=== PATIENT | male | born 1940 | race Caucasian/White ===

== ENCOUNTER 2021-02-13 07:52 | Inpatient (IN) | payer MEDICARE, OTHER, SELFPAY ==
[2021-02-13] VITALS (8 sets, daily range): BP systolic 105–185; BP diastolic 64–100; PULSE 55–87; RESP 16–21; TEMP 36.6–38.6; O2SAT 95–98; BMI 31.7; BMI 30.7
--- NOTE | 2021-02-13 08:06 | CT_ITS ---
STUDY: CT BRAIN WITHOUT CONTRAST REASON FOR EXAM: Male, 80 years old. Fall RADIATION DOSAGE (If Supplied By Facility): CTDIvol = ( 44.99 ) mGy, DLP = ( 812.98 ) mGycm TECHNIQUE: Transaxial CT imaging of the brain was performed without administration of intravenous contrast material. Individualized dose optimization techniques were used for this CT. COMPARISON: No relevant priors. FINDINGS: Normal soft tissue structures. Normal calvarium. There is mild cerebral atrophy with widening of the extra-axial spaces and ventricular dilatation. There are areas of decreased attenuation within the white matter tracts of the supratentorial brain, consistent with microvascular disease changes. Normal basal ganglia and thalami. Normal brainstem. Normal cerebellum. There is no intracranial hemorrhage. There are no findings of an acute ischemic infarction. Atherosclerotic calcification of the vertebral arteries and cavernous portions of the internal carotid arteries bilaterally. Minimal mucosal thickening at the bases of both maxillary sinuses. Partial opacification of the ethmoid sinuses bilaterally. CT/Brain/Head without Contrast IMPRESSION: Chronic involutional changes of the brain. Sinusitis. Electronically Signed: Roman Camp MD at 9:00 EDT , Service support ,
--- NOTE | 2021-02-13 08:06 | RAD_ITS ---
STUDY: X-RAY CHEST REASON FOR EXAM: Male, 80 years old. Fever, cough TECHNIQUE: Single AP portable view of the chest. COMPARISON: None. FINDINGS: EKG electrodes are seen. Focal right basilar infiltrate. There is no demonstrated pleural abnormality. Normal size heart. Normal mediastinum and cindy. Normal visualized pulmonary arteries. There is atherosclerotic tortuosity of the aortic arch and descending thoracic aorta. There are diffuse degenerative changes of the visualized thoracic spine. There is degenerative osteoarthritis of the bilateral shoulders. Prior fusion of the lower cervical spine. There is no demonstrated abnormality of the visualized soft tissue structures of the upper abdomen. RAD/Chest 1 View (Portable) IMPRESSION: Focal right basilar infiltrate. Electronically Signed: Roman Camp MD at 9:12 EDT , Service support ,
--- NOTE | 2021-02-13 08:06 | EKG12_ITS ---
Test Reason : Blood Pressure : / mmHG Vent. Rate : 079 BPM Atrial Rate : 079 BPM P-R Int : 158 ms QRS Dur : 088 ms QT Int : 362 ms P-R-T Axes : 042 007 033 degrees QTc Int : 415 ms Sinus rhythm with Premature supraventricular complexes Otherwise normal ECG Confirmed by SORAYA MORENO, LAST ([id number]), non linear editor CHERRY JONES ([id number]) on 02/14/2021 12:34:57 PM Referred By: CHANA Confirmed By:LAST LIRA MD
--- NOTE | 2021-02-13 08:07 | EDS_ITS ---
HPI History of Present Illness Chief Complaint: Dizziness Detail of Chief Complaint: Generalized weakness since yesterday Informant: patient Narrative Narrative: Patient presents to the emergency department via EMS. Patient per 's been a little unsteady on his feet since yesterday. He fell yesterday when you try to sit in a chair and did bump the back of his head but no loss of consciousness. He denies any neck pain. Patient's had cough for a couple of days as well as congestion. Noted to have a fever on arrival to the emergency department. He denies vomiting or diarrhea. Patient denies urinary symptoms although his states that he was incontinent of urine this morning. Patient denies any rashes. Patient has had his Covid vaccine. states that this morning he was too weak to stand or get dressed. Prior similar symptoms: No PFSH PFSH Medical History (Updated 02/13/21 @ 09:[address] Sun Biggs DO) Hernia HTN (hypertension) Home Medications clopidogrel 75 mg PO DAILY 02/13/21 [History Last Taken Unknown] isosorbide mononitrate 30 mg PO DAILY 02/13/21 [History Last Taken Unknown] lisinopril 5 mg PO DAILY 02/13/21 [History Last Taken Unknown] metoprolol succinate 12.5 mg PO DAILY 02/13/21 [History Last Taken Unknown] pravastatin 40 mg PO/SL DAILY 02/13/21 [History Last Taken Unknown] Allergy/AdvReac Type Severity Reaction Status Date / Time codeine Allergy Upset Verified 02/13/21 07:58 Stomach Surgical History (Updated 02/13/21 @ 08:04 by Ekaterina Ross) History of cardiac cath History of heart artery stent Previous back surgery Social History Smoking Status: Never smoker ROS ROS ED ROS Narrative Generalized weakness Constitutional Constitutional ED: Reports systems reviewed and no addt'l complaints, except as documented and fever(s); Denies body ache(s), change in weight or chills Eyes Eyes: Denies acute decrease in peripheral vision, change in vision, double vision or loss of vision ENT ENT ED: Reports none; Denies ear pain, lip swelling, loss taste/smell, neck pain, otalgia or sore throat Cardiovascular Cardiovascular: Reports none; Denies abdominal pain, chest pain with activity, leg edema, lightheadedness, palpitations, rapid heart rate or syncope Respiratory/Chest Respiratory/Chest: Reports none and cough; Denies change in mental status, dry cough, dyspnea, hemoptysis, shortness of breath at rest or shortness of breath with exertion Gastrointestinal Gastrointestinal: Reports none; Denies abdominal pain, change in stool character, diarrhea, hematemesis, hematochezia, melena, rectal bleeding or vomiting Genitourinary Genitourinary ED: Reports none; Denies abdominal discomfort, anuria, dysuria, genital pain or polyuria Musculoskeletal Musculoskeletal: Reports none; Denies arthralgias, back pain, difficulty walking, extremity pain, muscle weakness or myalgias Integumentary Reports none; Denies abscess or rash Neurologic Neurologic: Reports none and weakness; Denies abnormal gait, confusion, focal weakness, frequent falls, headache(s), loss of vision, numbness, paresthesias, radicular pain or vertigo Psychiatric Psychiatric: Reports systems reviewed and no addt'l complaints, except as documented and none; Denies behavioral changes, confusion, difficulty concentrating, hallucinations, suicidal ideation, tactile hallucinations or visual hallucinations Endocrine Endocrinology: Denies none, cold intolerance, excessive sweating, fatigue or heat intolerance Hematologic/Lymphatic Hematologic/Lymphatic: Reports none; Denies anemia, easy bleeding or easy bruising Allergic/Immunologic Allergic/Immunologic ED: Denies as per HPI, none, lip swelling, mouth swelling, throat swelling, tongue swelling or hives EXAM Physical Exam Const Vital Signs: 02/13/21 07:53 02/13/21 08:02 02/13/21 08:05 Temperature 101.4 F H 101.4 F H Temperature Source Oral Oral Pulse Rate 87 87 Respiratory Rate 21 H 21 H Respiratory Effort Normal Non-Labored Respiratory Pattern Normal Blood Pressure 169/100 H 169/100 H Blood Pressure Mean 123 123 Pulse Ox 96 96 Oxygen Delivery Method Room Air Room Air 02/13/21 09:10 02/13/21 09:55 Temperature 101.5 F H 100.8 F H Temperature Source Temporal Oral Pulse Rate 68 Respiratory Rate 21 H Respiratory Effort Respiratory Pattern Blood Pressure 148/90 H Blood Pressure Mean 109 Pulse Ox 95 Oxygen Delivery Method Room Air Positive well nourished and well developed General Appearance ED: well developed and NAD HEENT Reports TM's clear and moist mucous membranes normocephalic and atraumatic; Negative for trauma or tenderness Tympanic Membrane ED: Yes TM's clear Eyes PERRL and EOMs intact bilaterally General Eye ED: Negative for pale conjunctiva or scleral icterus Neck no lymphadenopathy, supple and no JVD General: Negative for tenderness Chest Wall inspection of chest normal and palpation of chest normal Chest: Negative for tenderness Resp normal respiratory effort and clear to auscultation bilaterally Effort and Inspection: Negative for respiratory distress or pain with movement Auscultation: Negative for rhonchi, wheezes or diminished lung sounds Cardio regular rate, regular rhythm, S1 normal heart sound, S2 normal heart sound and no murmurs Peripheral Pulses: pulses 2+ throughout GI normal to inspection, nondistended, normoactive bowel sounds, soft to palpation, non-tender, non-distended and no masses Back/Spine no CVA tenderness and no thoracic nor lumbar tenderness Extremity normal to inspection General Extremety ED: Negative for edema General Extremity: Negative for edema Neuro oriented x3, CN's II-XII intact bilaterally, no sensory deficits noted and gait normal Sensorium / Orientation: awake, alert, oriented to person, oriented to place and oriented to time Motor Exam: strength 5/5 throughout and strength abnormal Psych mental status grossly normal Skin no rashes or lesions noted and no wounds MDM MDM MDM Narrative Medical decision making narrative: Results discussed with patient. Patient is Covid positive. I suspect this is likely the etiology for his fever and generalized weakness. Case will be discussed with hospitalist to evaluate patient for admission. Lab Data Attestation: I reviewed the patient's lab results. Labs: Laboratory Results - last 24 hr 02/13/21 02/13/21 02/13/21 07:36 07:36 08:00 WBC 9.4 RBC 4.54 L Hgb 13.8 Hct 42.0 MCV 92.5 MCH 30.4 MCHC 32.9 RDW Std Deviation 47.4 H RDW Coeff of [place] 13.9 Plt Count 167 MPV 10.9 Immature Gran % (Auto) 0.300 Neut % (Auto) 62.9 Lymph % (Auto) 25.7 [place] % (Auto) 10.4 H Eos % (Auto) 0.2 Baso % (Auto) 0.5 Absolute Neuts (auto) 5.9 Absolute Lymphs (auto) 2.40 Nucleated RBC % 0 Sodium 144 Potassium 4.0 Chloride 113 H Carbon Dioxide 24.0 Anion Gap 7 BUN 21 H Creatinine 1.24 Estim Creat Clear Calc 43.59 Est GFR (MDRD) Af Amer 72 Est GFR (MDRD) Non-Af 60 BUN/Creatinine Ratio 16.9 Glucose 131 H Lactic Acid 1.1 Calcium 8.4 L Troponin I High Sens 18 Urine Color Urine Clarity Urine pH Ur Specific [place] Urine Protein Urine Glucose (UA) Urine Ketones Urine Occult Blood Urine Nitrite Urine Bilirubin Urine Urobilinogen Ur Leukocyte Esterase Urine RBC Urine WBC Ur Squamous Epith Cells Urine Bacteria Urine Mucus 02/13/21 09:09 WBC RBC Hgb Hct MCV MCH MCHC RDW Std Deviation RDW Coeff of [place] Plt Count MPV Immature Gran % (Auto) Neut % (Auto) Lymph % (Auto) [place] % (Auto) Eos % (Auto) Baso % (Auto) Absolute Neuts (auto) Absolute Lymphs (auto) Nucleated RBC % Sodium Potassium Chloride Carbon Dioxide Anion Gap BUN Creatinine Estim Creat Clear Calc Est GFR (MDRD) Af Amer Est GFR (MDRD) Non-Af BUN/Creatinine Ratio Glucose Lactic Acid Calcium Troponin I High Sens Urine Color Yellow Urine Clarity Clear Urine pH 5.0 Ur Specific [place] 1.020 Urine Protein Negative Urine Glucose (UA) Normal Urine Ketones Negative Urine Occult Blood Negative Urine Nitrite Negative Urine Bilirubin Negative Urine Urobilinogen Normal Ur Leukocyte Esterase Negative Urine RBC 0 SEEN Urine WBC 0 SEEN Ur Squamous Epith Cells 0 SEEN Urine Bacteria 0 SEEN Urine Mucus 0 SEEN Radiography Chest X-Ray - ED: 1 View Diagnostic Testing: Radiology Impression Brain CT 02/13/21 08:06 IMPRESSION: Chronic involutional changes of the brain. Sinusitis. Electronically Signed: Roman Camp MD at 9:00 EDT , Service support , Chest X-Ray 02/13/21 08:06 IMPRESSION: Focal right basilar infiltrate. Electronically Signed: Roman Camp MD at 9:12 EDT , Service support , 1 view chest x-ray obtained interpreted by myself as increased markings the right lower lobe suspicious for infiltrate.. Official report from radiology pending. EKG Initial EKG: Attestation: I personally reviewed and interpreted this EKG as follows: Comments: Sinus rhythm with a ventricular rate of 79 bpm with occasional PACs Discharge Plan Dx/Rx/DC Orders Clinical Impression: COVID-19, Weakness, Fall, CHI (closed head injury) Disposition Disposition: Acute Care Hospital [facility]
[2021-02-13] MEDS: 0.9% Normal Saline 1,000 ML 150 ML IV (08:20)
[2021-02-13 08:25] LABS: Absolute Neutrophil Count 5.9 X10^3/uL (2.0-7.7); Basophil# 0.05 X10^3/uL; Basophil% 0.5 % (0-1); Eosinophil# 0.02 X10^3/uL; Eosinophils% 0.2 % (0-5); Hemoglobin 13.8 g/dL (13.0-16.5); Lymphocyte % 25.7 % (19-41); Mean Corp Hgb Conc 32.9 g/dL (32-36); Mean Corpuscular Hgb 30.4 pg (27.0-32.0); Mean Corpuscular Volume 92.5 fL (80-94); Mean Platelet Vol. 10.9 fl (6.2-12.0); Monocyte# 0.97 X10^3/uL; Monocyte% 10.4 % (0-10); NRBC Flagged by Analyzer 0 % (0-5); Neutrophil # 5.88 X10^3/uL (2.7-7.7); Neutrophil % 62.9 % (47-70); Platelet Count 167 K/mm3 (150-450); RBC Distribution Width CV 13.9 % (11.6-14.6); RBC Distribution Width SD 47.4 fl (35.1-43.9); Red Blood Count 4.54 M/mm3 (4.6-6.2); White Blood Count 9.4 K/mm3 (4.4-11.0)
[2021-02-13 08:35] LABS: Lactic Acid 1.1 mmol/L (0.4-1.9)
[2021-02-13 08:37] LABS: Anion Gap 7 (5-15); BUN 21 mg/dL (7-18); BUN/Creat Ratio 16.9 RATIO (10-20); Calcium,Total 8.4 mg/dL (8.5-10.1); Chloride 113 mmol/L (98-107); Creatinine, Serum 1.24 mg/dL (0.70-1.30); EST Glomerular Filtration Rate 60 mL/min (>60); Est Glom Filt Rate - Afr Amer 72 mL/min (>60); Estimated Creatinine Clearance 43.59 ml/min; Glucose 131 mg/dL (74-106); Sodium Level 144 mmol/L (136-145); Troponin-I HS 18 pg/mL (3.0-78.0)
[2021-02-13] MEDS: Acetaminophen 325 MG Tablet 650 MG PO (09:10)
[2021-02-13 09:15] LABS: Bacteria 0 SEEN /hpf (None Seen); Mucous, Urine 0 SEEN /hpf (<or=2+); Red Blood Cells-Urine 0 SEEN /hpf (0-5); Squamous Epithelial Cells - UA 0 SEEN /hpf (0-5); White Blood Cells 0 SEEN /hpf (0-5)
[2021-02-13 09:25] LABS: Color, Urine Yellow (Yellow); Glucose, Dipstick Normal (Normal); Ketone-Dipstick Negative (Negative); Leukocyte Esterase-Dipstick Negative /ul (Negative); Nitrite-Dipstick Negative (Negative); Occult Blood-Urine Negative /ul (Negative); Protein-Dipstick Negative (Negative); Urine Bilirubin Dipstick Negative (Negative); Urine Clarity Clear (Clear); Urine Urobilinogen Normal (Normal)
[2021-02-13] MEDS: Enoxaparin 40 MG/0.4 ML Syringe SC (14:06)
--- NOTE | 2021-02-13 16:28 | PCM.HP.STD ---
HPI - General General Date of Admission: 02/13/21 HPI Narrative SANCHO LEBLANC, is a 80 M who presents to the ED with weakness since about yesterday. He also did have a fall yesterday when he tried to sit in a chair and bumped the back of his head but did not have any loss of consciousness. CT scan in the ER was negative for bleed. He has had a cough and congestion for the last couple of days as well and was febrile on admission. He did have the Covid vaccine however rapid antigen test in the ER demonstrates a Covid positive status with the right focal pneumonia on chest x-ray. No leukocytosis, and no hypoxia. He is a poor historian and I did talk to the on the phone who states that he fell a couple of days ago onto his knees and then yesterday he fell down when he tried to sit and then this morning he had difficulty standing up. She also states that he has had difficulty swallowing liquids and has episodes where the water comes out of his mouth. [facility] Medical History Hernia HTN (hypertension) Home Medications clopidogrel 75 mg PO DAILY 02/13/21 [History Last Taken Unknown] isosorbide mononitrate 30 mg PO DAILY 02/13/21 [History Last Taken Unknown] lisinopril 5 mg PO DAILY 02/13/21 [History Last Taken Unknown] metoprolol succinate 12.5 mg PO DAILY 02/13/21 [History Last Taken Unknown] pravastatin 40 mg PO/SL DAILY 02/13/21 [History Last Taken Unknown] Allergy/AdvReac Type Severity Reaction Status Date / Time codeine Allergy Upset Verified 02/13/21 07:58 Stomach Family History (Updated 02/13/21 @ 16:[address] Michael Orantes MD) Other CVA (cerebral vascular accident) Surgical History (Updated 02/13/21 @ 08:04 by Ekaterina Ross) History of cardiac cath History of heart artery stent Previous back surgery Social History Smoking Status: Never smoker ROS Constitutional Constitutional: Reports fever(s) and weakness; Denies chills, fatigue or malaise Eyes Eyes: Denies blurry vision ENT HEENT: Denies headache(s) or nasal discharge Cardiovascular Cardiovascular: Denies chest pain, dyspnea on exertion or syncope Respiratory/Chest Respiratory/Chest: Reports cough; Denies shortness of breath at rest or shortness of breath with exertion Gastrointestinal Gastrointestinal: Denies constipation, diarrhea, nausea or vomiting Genitourinary Genitourinary: Denies dysuria Neurologic Neurologic: Denies focal weakness, numbness or tremor(s) Psychiatric Psychiatric: Denies anxiety or depression Vital Signs Vital Signs Vital Signs: 02/13/21 07:53 02/13/21 08:02 02/13/21 08:05 Temperature 101.4 F H 101.4 F H Temperature Source Oral Oral Pulse Rate 87 87 Respiratory Rate 21 H 21 H Respiratory Effort Normal Non-Labored Respiratory Depth Respiratory Pattern Normal Blood Pressure 169/100 H 169/100 H Blood Pressure Mean 123 123 Blood Pressure Source Blood Pressure Position Blood Pressure Location Pulse Ox 96 96 Oxygen Delivery Method Room Air Room Air 02/13/21 09:10 02/13/21 09:55 02/13/21 11:00 Temperature 101.5 F H 100.8 F H 98.1 F Temperature Source Temporal Oral Oral Pulse Rate 68 85 Respiratory Rate 21 H 20 H Respiratory Effort Normal Respiratory Depth Normal Respiratory Pattern Normal Blood Pressure 148/90 H 122/64 H Blood Pressure Mean 109 83 Blood Pressure Source Monitor Blood Pressure Position Semi-Fowlers Blood Pressure Location Right Arm Pulse Ox 95 96 Oxygen Delivery Method Room Air Room Air 02/13/21 13:56 02/13/21 14:04 02/13/21 14:08 Temperature 97.8 F Temperature Source Oral Pulse Rate 55 L 55 L Respiratory Rate 18 Respiratory Effort Normal Respiratory Depth Normal Respiratory Pattern Normal Blood Pressure 105/64 Blood Pressure Mean 77 Blood Pressure Source Monitor Blood Pressure Position Sitting Blood Pressure Location Right Arm Pulse Ox 98 Oxygen Delivery Method Room Air Room Air Weight Weight: 190 lb 7.67 oz Body Mass Index (BMI) 30.7 Physical Exam Const alert and no apparent distress General Appearance: cooperative HEENT normocephalic and moist oral mucous membranes Eyes PERRL, EOMs intact bilaterally and conjunctivae normal Neck supple and no JVD Resp normal respiratory effort, no retractions and no use of accessory muscles Auscultation: crackles right base; Negative for rales, rhonchi or wheezes Cardio regular rate, regular rhythm, S1 normal heart sound, S2 normal heart sound and no murmurs GI soft to palpation, non-tender and non-distended; Negative for hepatosplenomegaly Extremity no clubbing, cyanosis or edema Skin no rashes or lesions noted Neuro no focal motor deficits and no sensory deficits noted Psych Mood & Affect: flat affect Results Lab / Micro Data Result Diagrams: 02/14/21 06:30 02/14/21 06:30 Labs: Laboratory Results - last 24 hr 02/13/21 07:36: WBC 9.4, RBC 4.54 L, Hgb 13.8, Hct 42.0, MCV 92.5, MCH 30.4, MCHC 32.9, RDW Std Deviation 47.4 H, RDW Coeff of [place] 13.9, Plt Count 167, MPV 10.9, Immature Gran % (Auto) 0.300, Neut % (Auto) 62.9, Lymph % (Auto) 25.7, [place] % (Auto) 10.4 H, Eos % (Auto) 0.2, Baso % (Auto) 0.5, Absolute Neuts (auto) 5.9, Absolute Lymphs (auto) 2.40, Nucleated RBC % 0 02/13/21 07:36: Sodium 144, Potassium 4.0, Chloride 113 H, Carbon Dioxide 24.0, Anion Gap 7, BUN 21 H, Creatinine 1.24, Estim Creat Clear Calc 43.59, Est GFR (MDRD) Af Amer 72, Est GFR (MDRD) Non-Af 60, BUN/Creatinine Ratio 16.9, Glucose 131 H, Calcium 8.4 L, Troponin I High Sens 18 02/13/21 08:00: Lactic Acid 1.1 02/13/21 09:09: Urine Color Yellow, Urine Clarity Clear, Urine pH 5.0, Ur Specific [place] 1.020, Urine Protein Negative, Urine Glucose (UA) Normal, Urine Ketones Negative, Urine Occult Blood Negative, Urine Nitrite Negative, Urine Bilirubin Negative, Urine Urobilinogen Normal, Ur Leukocyte Esterase Negative, Urine RBC 0 SEEN, Urine WBC 0 SEEN, Ur Squamous Epith Cells 0 SEEN, Urine Bacteria 0 SEEN, Urine Mucus 0 SEEN Micro: Microbiology 02/13/21 08:12 Nasal Secretion SARS-CoV-2 Antigen (Rapid) - Final SARS-CoV-2 (COVID 19) Radiology Impression Brain CT 02/13/21 08:06 IMPRESSION: Chronic involutional changes of the brain. Sinusitis. Electronically Signed: Roman Camp MD at 9:00 EDT , Service support , Chest X-Ray 02/13/21 08:06 IMPRESSION: Focal right basilar infiltrate. Electronically Signed: Roman Camp MD at 9:12 EDT , Service support , Assessment & Plan Assessment/Plan (1) COVID-19: (2) Weakness: PLAN: 1. Weakness and debility secondary to COVID-19 possible aspiration -Symptoms started a few days ago however he is not hypoxic therefore does not meet criteria for treatment with remdesivir and Decadron -He has vaccinated -We will obtain bedside swallow and possible speech evaluation if necessary -We will continue with PT/OT evaluation for possible placement -If he fails bedside swallow we will need to start him on IV fluids - states that he is been weak for the last several days and has been having issues with swallowing for the last couple of days specifically with water where comes out of his mouth 2. CAD status post stent/HTN/HLD -He does have a history of previous stent, will continue with his Plavix -Blood pressures are stable can continue with his home blood pressure medications -Continue with statin DVT: Lovenox Charges/Coding Visit Charges Inpatient E&M: 72121 Init Hosp L3
--- NOTE | 2021-02-13 16:53 | NURSING ---
aware per lab have enough urine for legonella and strep sent from ER
--- NOTE | 2021-02-13 16:59 | MRI_ITS ---
STUDY: MRI BRAIN WITHOUT CONTRAST REASON FOR EXAM: Male, 80 years old. Confusion, swallowing difficulty and weakness, COVID + TECHNIQUE: Standardized multiplanar fat and water weighted pulse sequences were obtained. COMPARISON: Same-day head CT FINDINGS: There is mild cerebral volume loss with widening of the extra-axial spaces and ventricular dilatation. There are a limited number of small white matter hyperintensities, distributed throughout the deep white matter tracts of the cerebral hemispheres, consistent with mild chronic white matter ischemic changes. There is no evidence for recent intracranial ischemia or other cause of cytotoxic edema on diffusion weighted imaging (DWI). Normal T2* images of the brain without demonstrated susceptibility artifact. There is no demonstrated hemosiderin stain. Normal bilateral basal ganglia. Normal thalami. There is no extra-axial fluid accumulation. Normal flow voids within the major intracranial circulation suggesting patency by spin echo criteria. Normal sella turcica, pituitary gland, infundibular stalk, optic chiasm and hypothalamus. Normal tectal plate and pineal gland. Normal midbrain, phani and medulla. Normal cerebellum. Normal basal cisterns. Normal bilateral temporal bones. Normal bilateral internal auditory canals. No demonstrated orbital abnormality, within the constraints of a routine brain study. Normal visualized paranasal sinuses. Small right mastoid effusion. Normal calvarium and skull base. Normal visualized soft tissue structures. Normal visualized upper cervical spine. MRI/Brain without Contrast IMPRESSION: No acute abnormal finding in the brain. Small right mastoid effusion. Electronically Signed: Tonny Hunter MD at 22:10 EDT Tel , Service support ,
[2021-02-13] MEDS: MELATONIN 3 MG TABLET PO (23:06)
[2021-02-13] MEDS: Pravastatin 40 MG Tablet PO (23:06)
[2021-02-14] VITALS (8 sets, daily range): BP systolic 108–151; BP diastolic 62–97; PULSE 60–84; RESP 17–20; TEMP 36.6–38.1; O2SAT 94–97
[2021-02-14] MEDS: Lisinopril 5 MG Tablet PO ×2 (00:07→09:59)
[2021-02-14] MEDS: Metoprolol(XL)Succ 25 MG Tablet 12.5 MG PO ×2 (00:07→09:57)
[2021-02-14 07:29] LABS: Absolute Lymphocyte Count 2.33 X10^3/uL (0.83-4.51); Basophil# 0.03 X10^3/uL; Basophil% 0.4 % (0-1); Eosinophil# 0.02 X10^3/uL; Eosinophils% 0.2 % (0-5); Hematocrit 39.8 % (40-54); Hemoglobin 12.7 g/dL (13.0-16.5); Lymphocyte # 2.33 X10^3/ul (0.83-4.51); Lymphocyte % 28.6 % (19-41); Mean Corp Hgb Conc 31.9 g/dL (32-36); Mean Corpuscular Hgb 29.8 pg (27.0-32.0); Mean Corpuscular Volume 93.4 fL (80-94); Monocyte# 0.73 X10^3/uL; Monocyte% 8.9 % (0-10); NRBC Flagged by Analyzer 0 % (0-5); Neutrophil # 5.03 X10^3/uL (2.7-7.7); Neutrophil % 61.7 % (47-70); Platelet Count 132 K/mm3 (150-450); RBC Distribution Width SD 47.8 fl (35.1-43.9); Red Blood Count 4.26 M/mm3 (4.6-6.2); White Blood Count 8.2 K/mm3 (4.4-11.0)
[2021-02-14 07:54] LABS: Anion Gap 5 (5-15); BUN 16 mg/dL (7-18); BUN/Creat Ratio 18.1 RATIO (10-20); Calcium,Total 8.3 mg/dL (8.5-10.1); Chloride 112 mmol/L (98-107); Creatinine, Serum 0.88 mg/dL (0.70-1.30); EST Glomerular Filtration Rate 88 mL/min (>60); Est Glom Filt Rate - Afr Amer 107 mL/min (>60); Estimated Creatinine Clearance 61.42 ml/min; Glucose 111 mg/dL (74-106); Sodium Level 143 mmol/L (136-145)
[2021-02-14] MEDS: Isosorbide Mononitrate 30 MG Tablet PO (09:57)
[2021-02-14] MEDS: Enoxaparin 40 MG/0.4 ML Syringe SC (09:58)
[2021-02-14] MEDS: 0.9% Saline Lock 10 ML Syringe IV (09:59)
--- NOTE | 2021-02-14 11:49 | CASEMGMT ---
Social Work Assessment Referral Date: 02/14/2021 Date of Assessment: 02/14/2021 Reason for consult: Discharge planning Informant: SW Personal Status: SW in to speak with pt to complete initial assessment. SW introduced self and role at [facility]. Pt is alert and orientated x3, answers questions appropriately. Living Arrangements: Pt states he lives with his Naida in a first floor condo, with one step to enter and no railings by the steps. DME: Cane, walker, wheelchair, Shower chair PCP: Dong Laughlin Pharmacy: [facility] ALDs: Pt's Naida assists with ADLS, pt mostly independent to get up and walk around at home. Transportation: Pt's Naida dirves Advanced Directives: Pt denied, states his would make decisions for him if needed HHC: Pt states has had HHC in the past, unable to recall name of Agency SNF: None Therapy: Pt states that he was doing outpatient therapy at [facility], states it was a few days blair the last time he went. Pt states he had five sessions left but decided to stop going. Pt states therapy doesn't really do much for me. Substance Abuse Hx: Pt denied Mental Health Hx: Pt denied SW spoke with pt about discharge plans. Pt states that he feels better than he did yesterday. At first pt states he doesn't feel safe going home, SW asked pt if he needs to go to a SNF then for short term rehabilitation and pt denied. Pt then states he feels safe at home, he just has back pain. Pt states that he's had operations before for his back and they worked for about five years. Pt states he needs another surgery. SW asked pt if he has a surgery schedule and pt denied, states the person that did his last surgery is not around here anymore and pt needs to find a new surgeon. SW asked pt if he spoke with his PCP about getting a new back surgeon and pt states he hasn't yet. SW encouraged pt to speak to his PCP about finding a back surgeon, pt states understanding. Pt states at this time preference is to return home. SW asked pt if he felt like he needed HHC or outpatient therapy again and pt denied. SW asked pt if this worker could call his and pt gave this worker permission to call his . Per OT notes from today, pt walked 20ft min assist of 1 contact guard, min assistance for ADLs. ASH placed a call to pt's Naida and introduced self and role at [facility]. Naida confirms she assists pt with ADLs, states pt is able to get around ok when he utilizes a cane and walker. Naida states pt's HHC was through [facility] but it has been a while since pt has had HHC. Naida states pt was getting therapy 2x a week at [facility] for his drop foot. Naida states pt's doctor told pt that he didn't need to go to outpatient therapy anymore. Naida states pt was supposed to get fitted today for a brace for his drop foot but that will be rescheduled. Naida states that they are in the process of moving from [place] to [place] so she will be in and out today moving things from [place] to [place]. ASH asked pt if she felt pt needed any HHC/outpatient therapy and Naida asked this worker well what do you think. ASH informed Naida that OT did recommend additional therapy but at this time pt is refusing any HHC or outpatient therapy. Naida states that sounds like him. ASH informed Naida that SW/RN CM will continue to work with therapy and see if pt would be agreeable to any additional therapy. Naida states understanding, agreeable to pt returning home at discharge. 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
--- NOTE | 2021-02-14 13:38 | PN.HOSP_ITS ---
Subjective Subjective Looks much better today, more energetic. Passes dysphagia screen. MRI was negative for stroke and CT scan was unremarkable. Objective Data Objective Data Vital Signs: Vital Signs Temp Pulse Resp BP Pulse Ox 97.9 F 82 20 H 108/62 94 02/14/21 13:27 02/14/21 13:27 02/14/21 13:27 02/14/21 13:27 02/14/21 13:27 Oxygen Delivery Method Room Air Weight: 190 lb 7.67 oz Body Mass Index (BMI) 30.7 Intake & Output: Intake and Output for Last 24 Hours 02/13/21 02/14/21 02/15/21 03:59 03:59 03:59 Intake Total 550 / 550 Balance 550 / 550 Lab / Micro Data Result Diagrams: 02/14/21 06:30 02/14/21 06:30 Labs: Laboratory Results - last 24 hr 02/14/21 06:30: WBC 8.2, RBC 4.26 L, Hgb 12.7 L, Hct 39.8 L, MCV 93.4, MCH 29.8, MCHC 31.9 L, RDW Std Deviation 47.8 H, RDW Coeff of Triston 14.0, Plt Count 132 L, MPV 11.0, Immature Gran % (Auto) 0.200, Neut % (Auto) 61.7, Lymph % (Auto) 28.6, Giles % (Auto) 8.9, Eos % (Auto) 0.2, Baso % (Auto) 0.4, Absolute Neuts (auto) 5.0, Absolute Lymphs (auto) 2.33, Nucleated RBC % 0 02/14/21 06:30: Sodium 143, Potassium 4.0, Chloride 112 H, Carbon Dioxide 26.0, Anion Gap 5, BUN 16, Creatinine 0.88, Estim Creat Clear Calc 61.42, Est GFR (MDRD) Af Amer 107, Est GFR (MDRD) Non-Af 88, BUN/Creatinine Ratio 18.1, Glucose 111 H, Calcium 8.3 L Micro: Microbiology 02/13/21 09:09 Urine, Clean Catch Urine Culture - Preliminary Culture exhibits no growth. 02/13/21 09:09 Urine, Clean Catch Legionella Antigen - Final 02/13/21 09:09 Urine, Clean Catch Streptococcus pneumoniae Antigen (M - Final 02/13/21 08:12 Nasal Secretion SARS-CoV-2 Antigen (Rapid) - Final SARS-CoV-2 (COVID 19) Radiography Diagnostic Testing: Radiology Impression Brain MRI 02/13/21 16:59 IMPRESSION: No acute abnormal finding in the brain. Small right mastoid effusion. Electronically Signed: Tonny Hunter MD at 22:10 EDT Tel , Service support , Physical Exam Const alert, oriented x3 and no apparent distress General Appearance: cooperative HEENT normocephalic and moist oral mucous membranes Eyes PERRL, EOMs intact bilaterally and conjunctivae normal Neck supple and no JVD Resp normal respiratory effort, no retractions and no use of accessory muscles Auscultation: crackles right base; Negative for rales, rhonchi or wheezes Cardio regular rate, regular rhythm, S1 normal heart sound, S2 normal heart sound and no murmurs GI soft to palpation, non-tender and non-distended; Negative for hepatosplenomegaly Extremity no clubbing, cyanosis or edema Skin no rashes or lesions noted Neuro no focal motor deficits and no sensory deficits noted Psych affect normal Appearance: appropriate Assessment & Plan Assessment/Plan (1) COVID-19: (2) Weakness: PLAN: 1. Weakness and debility secondary to COVID-19 possible aspiration -Symptoms started a few days ago however he is not hypoxic therefore does not meet criteria for treatment with remdesivir and Decadron -He has been vaccinated -Passed bedside swallow -PT/OT evaluation demonstrates need for SNF, will discuss this with him -MRI was negative for stroke -Remains afebrile without a leukocytosis, has not had Tylenol for at least 24 hours 2. CAD status post stent/HTN/HLD -He does have a history of previous stent, will continue with his Plavix -Blood pressures are stable can continue with his home blood pressure medicat ions -Continue with statin DVT: Lovenox Charges/Coding Visit Charges Inpatient E&M: 68686 Subs Hosp L2
--- NOTE | 2021-02-14 15:16 | CASEMGMT ---
RN CM in to pt room to discuss HHC options with patient. Pt states he really does not want HHC therapy but asks this CM to call his . TC to . No answer, left message to call this RN CM back.
[2021-02-14] MEDS: Pravastatin 40 MG Tablet PO (20:33)
[2021-02-15 02:26] VITALS: BP 149/98; PULSE 71; RESP 20; TEMP 36.6; O2SAT 94
[2021-02-15 07:05] LABS: Absolute Lymphocyte Count 1.77 X10^3/uL (0.83-4.51); Absolute Neutrophil Count 4.5 X10^3/uL (2.0-7.7); Basophil# 0.02 X10^3/uL; Basophil% 0.3 % (0-1); Hematocrit 39.4 % (40-54); Hemoglobin 12.7 g/dL (13.0-16.5); Lymphocyte # 1.77 X10^3/ul (0.83-4.51); Lymphocyte % 25.7 % (19-41); Mean Corp Hgb Conc 32.2 g/dL (32-36); Mean Corpuscular Hgb 29.8 pg (27.0-32.0); Mean Corpuscular Volume 92.5 fL (80-94); Monocyte# 0.61 X10^3/uL; Monocyte% 8.9 % (0-10); NRBC Flagged by Analyzer 0 % (0-5); Neutrophil # 4.47 X10^3/uL (2.7-7.7); Platelet Count 127 K/mm3 (150-450); RBC Distribution Width CV 14.1 % (11.6-14.6); RBC Distribution Width SD 48.1 fl (35.1-43.9); Red Blood Count 4.26 M/mm3 (4.6-6.2); White Blood Count 6.9 K/mm3 (4.4-11.0)
[2021-02-15 07:42] LABS: Anion Gap 7 (5-15); BUN 17 mg/dL (7-18); BUN/Creat Ratio 16.7 RATIO (10-20); Calcium,Total 8.4 mg/dL (8.5-10.1); Chloride 111 mmol/L (98-107); Creatinine, Serum 1.02 mg/dL (0.70-1.30); EST Glomerular Filtration Rate 75 mL/min (>60); Est Glom Filt Rate - Afr Amer 90 mL/min (>60); Estimated Creatinine Clearance 52.99 ml/min; Glucose 106 mg/dL (74-106); Potassium 3.7 mmol/L (3.5-5.1); Sodium Level 141 mmol/L (136-145)
[2021-02-15] MEDS: Enoxaparin 40 MG/0.4 ML Syringe SC (09:52)
[2021-02-15] MEDS: Lisinopril 5 MG Tablet PO (09:53)
[2021-02-15 09:54] VITALS: PULSE 78
[2021-02-15] MEDS: Metoprolol(XL)Succ 25 MG Tablet 12.5 MG PO (09:54)
[2021-02-15] MEDS: Isosorbide Mononitrate 30 MG Tablet PO (09:59)
[2021-02-15 10:00] VITALS: BP 109/69; PULSE 78; RESP 18; TEMP 36.8; O2SAT 96
--- NOTE | 2021-02-15 12:49 | PCM.DC ---
Discharge Instructions Diet Discharge Diet: Low fat / Low cholesterol Activity Discharge Activity: Return to Normal Activity Dressing / Incision Call your doctor if you observe: Fever of 101 or Higher, Shortness of breath, Dizziness, Fainting spells, Swelling in the ankles, Chest pain and Increased palpitations (irregular heartbeat) Follow Up Care Test Results: Test results from this visit will be discussed in further detail at your follow-up appointment, if applicable. Discharge Plan Admission Admit Date/Time: 02/13/21 09:45 Attending Provider: Michael Orantes Primary Care Provider: Juliocesar Laughlin Discharge Orders/Prescriptions Prescriptions: Continued isosorbide mononitrate 30 mg Tablet Extended Release 24 Hr 30 mg PO DAILY RF: 0 clopidogrel 75 mg Tablet 75 mg PO DAILY RF: 0 lisinopril 5 mg Tablet 5 mg PO DAILY RF: 0 metoprolol succinate 25 mg Tablet Extended Release 24 Hr 12.5 mg PO DAILY RF: 0 pravastatin 40 mg PO/SL DAILY RF: 0 Referrals / Follow Up: Juliocesar Laughlin MD [Primary Care Provider] - Within 1 Week Disposition Disposition (needs filled in before D/C Order can be placed): Home Health Service
--- NOTE | 2021-02-15 12:51 | PCM.DC.SUM ---
Providers Date of Admission: 02/13/21 Primary Care Physician: Dr. Juliocesar Laughlin MD Reason For Visit: COVID PNEUMONIA Diagnosis Discharge Diagnosis (1) COVID-19: Status: Acute Code(s): U07.1 - COVID-19 (2) Weakness: Status: Acute Code(s): R53.1 - Weakness Medications at Discharge Home Medications clopidogrel 75 mg PO DAILY 02/13/21 isosorbide mononitrate 30 mg PO DAILY 02/13/21 lisinopril 5 mg PO DAILY 02/13/21 metoprolol succinate 12.5 mg PO DAILY 02/13/21 pravastatin 40 mg PO/SL DAILY 02/13/21 albuterol sulfate 2 puff INHALATION Q6H PRN #6.7 g 02/15/21 Hospital Course Operations None Procedures None Summary of Care Provided Minutes Spent on Discharge: 35 Hospital Course: Per HPI: SANCHO LEBLANC, is a 80 M who presents to the ED with weakness since about yesterday. He also did have a fall yesterday when he tried to sit in a chair and bumped the back of his head but did not have any loss of consciousness. CT scan in the ER was negative for bleed. He has had a cough and congestion for the last couple of days as well and was febrile on admission. He did have the Covid vaccine however rapid antigen test in the ER demonstrates a Covid positive status with the right focal pneumonia on chest x-ray. No leukocytosis, and no hypoxia. He is a poor historian and I did talk to the on the phone who states that he fell a couple of days ago onto his knees and then yesterday he fell down when he tried to sit and then this morning he had difficulty standing up. She also states that he has had difficulty swallowing liquids and has episodes where the water comes out of his mouth. Hospital Course: 1. Weakness and debility secondary to [id number]-year-old male presents from home secondary to weakness and fall. Per the he had fallen a few days earlier onto his knees and then on the day of admission he had fallen onto his butt may have hit the back of his head while he was trying to sit down. No loss of consciousness. He is feeling much better today, both he and his do not want him to go to a custodial. I explained to him that he was only able to ambulate 15 feet with contact-guard assistance on his previous level of assistive device however he would like to go home. We will hopefully be able to get him with home health and home PT. He is vaccinated and he is not requiring any oxygen at the moment therefore there is no need to place him on Decadron for remdesivir at this time. Of note he did have some scattered wheezes today therefore give him a breathing treatment prior to discharge and also given albuterol inhaler when he was home. I discussed with him the plan for possible discharge today he expressed understanding of the risk benefits of going home and he would like to go home versus the custodial today. He will need to follow-up with his PCP in 3 to 5 days. 2. Coronary artery disease status post stent, hypertension, hyperlipidemia, chronic medical conditions which complicate his care. His home medications were continued where appropriate Physical Exam Const alert, oriented x3 and no apparent distress General Appearance: cooperative HEENT normocephalic and moist oral mucous membranes Eyes PERRL, EOMs intact bilaterally and conjunctivae normal Neck supple and no JVD Resp normal respiratory effort, no retractions and no use of accessory muscles Auscultation: wheezes scattered wheezes; Negative for crackles, rales or rhonchi Cardio regular rate, regular rhythm, S1 normal heart sound, S2 normal heart sound and no murmurs GI soft to palpation, non-tender and non-distended; Negative for hepatosplenomegaly Extremity no clubbing, cyanosis or edema Skin no rashes or lesions noted Neuro no focal motor deficits and no sensory deficits noted Psych affect normal Appearance: appropriate Mood & Affect: flat affect Weight / BMI Weight Weight: 190 lb 7.67 oz Body Mass Index (BMI) 30.7 ABG / Lab / Microbiology Data Result Diagrams: 02/15/21 06:20 02/15/21 06:20 Laboratory: Laboratory Results - last 24 hr 02/15/21 06:20: WBC 6.9, RBC 4.26 L, Hgb 12.7 L, Hct 39.4 L, MCV 92.5, MCH 29.8, MCHC 32.2, RDW Std Deviation 48.1 H, RDW Coeff of Triston 14.1, Plt Count 127 L, MPV 11.0, Immature Gran % (Auto) 0.100, Neut % (Auto) 65.0, Lymph % (Auto) 25.7, Randolph % (Auto) 8.9, Eos % (Auto) 0.0, Baso % (Auto) 0.3, Absolute Neuts (auto) 4.5, Absolute Lymphs (auto) 1.77, Nucleated RBC % 0 02/15/21 06:20: Sodium 141, Potassium 3.7, Chloride 111 H, Carbon Dioxide 23.0, Anion Gap 7, BUN 17, Creatinine 1.02, Estim Creat Clear Calc 52.99, Est GFR (MDRD) Af Amer 90, Est GFR (MDRD) Non-Af 75, BUN/Creatinine Ratio 16.7, Glucose 106, Calcium 8.4 L Microbiology: Microbiology 02/13/21 08:22 Blood Culture (Wb) - Anticubital Right Blood Culture - Preliminary No growth in 48 hours. 02/13/21 08:00 Blood Culture (Wb) - Anticubital Left Blood Culture - Preliminary No growth in 48 hours. 02/13/21 08:12 Nasal Secretion SARS-CoV-2 Antigen (Rapid) - Final SARS-CoV-2 (COVID 19) 02/13/21 09:09 Urine, Clean Catch Urine Culture - Final Mixed Gram Positive Organisms 02/13/21 09:09 Urine, Clean Catch Legionella Antigen - Final 02/13/21 09:09 Urine, Clean Catch Streptococcus pneumoniae Antigen (M - Final D/C Instructions Discharge Diet: Low fat / Low cholesterol Call your doctor if you observe: Fever of 101 or Higher, Shortness of breath, Dizziness, Fainting spells, Swelling in the ankles, Chest pain and Increased palpitations (irregular heartbeat) Meaningful Use Info Meaningful Use Diagnoses (Choose all that apply): None applicable Discharge Plan Admission Admit Date/Time: 02/13/21 09:45 Attending Provider: Michael Orantes Primary Care Provider: Juliocesar Laughlin Discharge Orders/Prescriptions Prescriptions: New albuterol sulfate 90 mcg/actuation HFA aerosol inhaler 2 puff inhalation Q6H PRN (Reason: shortness of breath or wheezing) Qty: 6.7 RF: 0 Continued isosorbide mononitrate 30 mg Tablet Extended Release 24 Hr 30 mg PO DAILY RF: 0 clopidogrel 75 mg Tablet 75 mg PO DAILY RF: 0 lisinopril 5 mg Tablet 5 mg PO DAILY RF: 0 metoprolol succinate 25 mg Tablet Extended Release 24 Hr 12.5 mg PO DAILY RF: 0 pravastatin 40 mg PO/SL DAILY RF: 0 Referrals / Follow Up: Juliocesar Laughlin MD [Primary Care Provider] - Within 1 Week Disposition Disposition (needs filled in before D/C Order can be placed): Home Health Service Charges/Coding Visit Charges Inpatient E&M: 42767 Disch Hosp
--- NOTE | 2021-02-15 13:30 | CASEMGMT ---
RN JIMMIE called pt to discuss dc planning. Provided a verbal list of C providers including quality and resource use data and consistent with the patient?s preferred geographic region, medical needs, and insurance network. The patient?s preferred provider is [facility]. She is aware that the dc instructions will have the contact information of the RECEIVING OPERATOR and they will be in contact with her. TC to Juliet at [facility], referral made and faxed at this time.
[2021-02-15] MEDS: Ipratropium/Albuterol Sulfate 3 ML AMPUL.NEB INHALATION (14:59)
[2021-02-15 15:02] VITALS: PULSE 90; RESP 20; O2SAT 92
[2021-02-15] MEDS: Clopidogrel Bisulfate 75 MG Tablet PO (15:19)
[2021-02-15 15:21] VITALS: BP 100/51; PULSE 82; RESP 20; TEMP 38.1; O2SAT 92
--- NOTE | 2021-02-15 15:54 | NURSING ---
This nurse informed Pt's of fever of 100.5 and that tylenol will be given along with antibotic x1 dose but to keep an eye on his temp at home and call his PCP or come to ED if fever over 101. 0. Discharge instructions reviewed with .
[2021-02-15] MEDS: Amox/Clavulanate 875 MG Tablet PO (16:30)
[2021-02-15] MEDS: Acetaminophen 325 MG Tablet 650 MG PO (16:33)
== END 2021-02-15 16:40 | disposition home health service (06) | DRG 177 ==
LOC: ED 09:00 → MS3 10:45
PROVIDERS: Admitting Provider Family Medicine; Emergency Provider Emergency Medicine; PCP Family Medicine; Visit Provider Family Medicine
DX: U07.1 COVID-19 (principal); J69.0 Pneumonitis due to inhalation of food and vomit; R13.10 Dysphagia, unspecified; S09.90XA Unspecified injury of head, initial encounter; W19.XXXA Unspecified fall, initial encounter; Y93.9 Activity, unspecified; Y92.9 Unspecified place or not applicable; Y99.9 Unspecified external cause status; I25.10 Atherosclerotic heart disease of native coronary artery without angina pectoris; I10 Essential (primary) hypertension; E78.5 Hyperlipidemia, unspecified; Z79.02 Long term (current) use of antithrombotics/antiplatelets; Z79.899 Other long term (current) drug therapy; Z95.5 Presence of coronary angioplasty implant and graft
CPT/HCPCS: 36415; 70450; 70551; 71045; 80048; 81001; 83605; 84484; 85025; 87040; 87086; 87088; 87426; 87449; 93005; 94640; 97110; 97163; 97166; 97530; 99251; 99285; J7030; A4216; G0463

== ENCOUNTER 2021-02-16 06:09 | Inpatient (IN) | payer MEDICARE, OTHER, SELFPAY ==
[2021-02-16] VITALS (18 sets, daily range): BP systolic 97–145; BP diastolic 75–112; PULSE 65–112; RESP 16–29; TEMP 36.3–37.6; O2SAT 93–96; BMI 31.3; BMI 29.9
--- NOTE | 2021-02-16 07:02 | EDS_ITS ---
HPI History of Present Illness Chief Complaint: Shortness of Breath Informant: patient, spouse/S.O. and EMS Narrative Narrative: 80-year-old male presenting to the emergency department via EMS. Patient does not know why he is here or why his called the ambulance. He is unsure why he was in the hospital the past couple days. His on the phone informs nursing that he was admitted following a fall in which he hit his head and then tested positive for Covid due to his weakness was admitted. He was discharged home yesterday afternoon. The states that he is unable to ambulate and has been having accidents. She states she cannot care for him and that he will need to go to rehab facility. [facility] Medical History Hernia HTN (hypertension) Home Medications clopidogrel 75 mg PO DAILY 02/13/21 [History Last Taken Unknown] isosorbide mononitrate 30 mg PO DAILY 02/13/21 [History Last Taken Unknown] lisinopril 5 mg PO DAILY 02/13/21 [History Last Taken Unknown] metoprolol succinate 12.5 mg PO DAILY 02/13/21 [History Last Taken Unknown] pravastatin 40 mg PO/SL DAILY 02/13/21 [History Last Taken Unknown] albuterol sulfate 2 puff INHALATION Q6H PRN #6.7 g 02/15/21 [Rx Last Taken Unknown] amoxicillin-pot clavulanate [Augmentin] 1 tab PO BID #14 tab 02/15/21 [Rx Last Taken Unknown] Allergy/AdvReac Type Severity Reaction Status Date / Time codeine Allergy Upset Verified 02/16/21 06:15 Stomach Family History (Updated 02/13/21 @ 16:[address] Michael Orantes MD) Other CVA (cerebral vascular accident) Surgical History History of cardiac cath History of heart artery stent Previous back surgery Social History (Updated 02/16/21 @ 07:[address] Jessee Gordon DO) Smoking Status: Never smoker substance use type: does not use ROS ROS ED Review of Systems ROS Unobtainable: due to mental status EXAM Physical Exam Const Vital Signs: 02/16/21 06:13 02/16/21 06:15 02/16/21 06:48 Temperature 97.8 F 97.8 F Temperature Source Temporal Oral Pulse Rate 65 69 Respiratory Rate 24 H 24 H Respiratory Effort Short of Breath Respiratory Depth Normal Respiratory Pattern Normal Blood Pressure 128/98 H 128/98 H Blood Pressure Mean 108 108 Pulse Ox 94 94 Oxygen Delivery Method Room Air Room Air Positive well nourished and well developed General Appearance ED: well developed HEENT Reports normocephalic, head/scalp atraumatic and moist mucous membranes Eyes PERRL and EOMs intact bilaterally Neck no lymphadenopathy, supple and no JVD Resp normal respiratory effort and clear to auscultation bilaterally Cardio regular rate, regular rhythm and no murmurs GI normal to inspection, nondistended, normoactive bowel sounds and non-tender Palpation: soft Back/Spine no CVA tenderness and normal ROM Extremity normal to inspection General Extremety ED: Negative for edema General Extremity: Negative for edema Neuro CN's II-XII intact bilaterally Sensorium / Orientation: alert and orientation impaired Motor Exam: strength 5/5 throughout Psych mental status grossly normal Mood & Affect: Negative for depressed or tearful Skin no rashes or lesions noted and no wounds MDM MDM MDM Narrative Medical decision making narrative: I reviewed the patient's recent stay. I spoke with Dr. Orantes who cared for him. He notes that they wanted to place him in an ECF but the patient and his wanted to go home. He had already had a PT test that was strongly recommending rehab. We will check basic labs an d I will have our oncology social work attempt to get him placed from the ED. If we are unable to get him placed we will admit. Discharge Plan Triage Chief Complaint: Shortness of Breath ED Provider: Jessee Gordon Dx/Rx/DC Orders Clinical Impression: COVID-19, Weakness Prescriptions: No Action isosorbide mononitrate 30 mg Tablet Extended Release 24 Hr 30 mg PO DAILY RF: 0 clopidogrel 75 mg Tablet 75 mg PO DAILY RF: 0 lisinopril 5 mg Tablet 5 mg PO DAILY RF: 0 metoprolol succinate 25 mg Tablet Extended Release 24 Hr 12.5 mg PO DAILY RF: 0 pravastatin 40 mg PO/SL DAILY RF: 0 albuterol sulfate 90 mcg/actuation HFA aerosol inhaler 2 puff inhalation Q6H PRN (Reason: shortness of breath or wheezing) Qty: 6.7 RF: 0 amoxicillin-pot clavulanate [Augmentin] 875-125 mg tablet 1 tab PO BID Qty: 14 RF: 0 Primary Care Provider: Juliocesar Laughlin Referrals: Juliocesar Laughlin MD [Primary Care Provider] -
[2021-02-16 07:25] LABS: Absolute Lymphocyte Count 1.78 X10^3/uL (0.83-4.51); Absolute Neutrophil Count 3.5 X10^3/uL (2.0-7.7); Basophil# 0.01 X10^3/uL; Basophil% 0.2 % (0-1); Eosinophil# 0.01 X10^3/uL; Eosinophils% 0.2 % (0-5); Hematocrit 42.1 % (40-54); Hemoglobin 13.5 g/dL (13.0-16.5); Lymphocyte # 1.78 X10^3/ul (0.83-4.51); Lymphocyte % 30.6 % (19-41); Mean Corp Hgb Conc 32.1 g/dL (32-36); Mean Corpuscular Hgb 29.9 pg (27.0-32.0); Mean Corpuscular Volume 93.1 fL (80-94); Mean Platelet Vol. 10.8 fl (6.2-12.0); Monocyte% 8.6 % (0-10); NRBC Flagged by Analyzer 0 % (0-5); Neutrophil % 60.1 % (47-70); Platelet Count 113 K/mm3 (150-450); RBC Distribution Width CV 14.5 % (11.6-14.6); RBC Distribution Width SD 49.5 fl (35.1-43.9); Red Blood Count 4.52 M/mm3 (4.6-6.2); White Blood Count 5.8 K/mm3 (4.4-11.0)
[2021-02-16 07:44] LABS: ALB/GLOB Ratio 0.8 RATIO (0.9-2.4); AST(SGOT) 33 U/L (15-37); Alanine Aminotransfer ALT/SGPT 25 U/L (16-61); Albumin, Serum 2.7 g/dL (3.2-5.0); Alkaline Phosphatase 54 U/L (45-117); Anion Gap 8 (5-15); BUN 30 mg/dL (7-18); BUN/Creat Ratio 19.5 RATIO (10-20); Calcium,Total 8.4 mg/dL (8.5-10.1); Chloride 110 mmol/L (98-107); Creatinine, Serum 1.54 mg/dL (0.70-1.30); EST Glomerular Filtration Rate 46 mL/min (>60); Est Glom Filt Rate - Afr Amer 56 mL/min (>60); Globulin 3.5 g/dL (2.2-4.2); Glucose 112 mg/dL (74-106); Protein, Total 6.2 g/dL (6.4-8.2); Sodium Level 142 mmol/L (136-145)
--- NOTE | 2021-02-16 14:52 | CM.ED ---
ASH Note: Referral Source: ED order checkerski patrol Needs: SNF as patient's reports she can not manage him. ASH called patient's . She said that she can not manage patient at home. She said that they moved from [place] to [place] last week. Patient's said that she has no preference regarding patient's stay for SNF. ASH called Chantelle at [facility]. She agreed to review patient's chart for admission today. ASH reviewed paperwork for review for referral to [facility] and noted that patient is COVID positive. ASH called Chantelle at [facility] and updated her. As patient is COVID positive he is unable to be referred to [facility]. ASH updated Marietta, ED charge machine operator about this situation. She will update Valeriano and have Valeriano speak to Hospitalist. ASH called patients , Naida, again. Advised that there are limited places that take COVID 19 patients. She said that she has no preference regarding where patient will go for SNF. She again voiced that she can't manage patient at home. Naida asked that this data analyst report writer or staff update her regarding patient's room at [facility]. Naida asked if patient will stay in the hospital till SNF. Naida was advised that staff evaluates patient daily regarding discharge planning. Plan: Patient will need to be admitted for placement Ivana HUNTER
--- NOTE | 2021-02-16 16:00 | NURSING ---
MED SURG OBS KAMI WHARTON 20, FAILURE TO THRIVE
--- NOTE | 2021-02-16 16:37 | PCM.HP.STD ---
HPI - General General Date of Admission: 02/16/21 HPI Narrative SANCHO LEBLANC, is a 80 M who presents to the hospital from home after his decided that she cannot take care of him based on his weakness. He was recently admitted for COVID-19 as well as generalized weakness from a fall and possible aspiration pneumonia. He did pass his previous bedside swallow. He was discharged home per family request despite assurances that he would likely need SNF placement for rehab. He was placed on Augmentin for his aspiration pneumonia which can be continued here. Based on his, what appears to be baseline confusion, he is not a great historian. In previous conversations with the she states that she normally speaks for him as he does not remember his medical history as well. [facility] Medical History Hernia HTN (hypertension) Home Medications clopidogrel 75 mg PO DAILY 02/13/21 [History Last Taken Unknown] isosorbide mononitrate 30 mg PO DAILY 02/13/21 [History Last Taken Unknown] lisinopril 5 mg PO DAILY 02/13/21 [History Last Taken Unknown] metoprolol succinate 12.5 mg PO DAILY 02/13/21 [History Last Taken Unknown] pravastatin 40 mg PO/SL DAILY 02/13/21 [History Last Taken Unknown] albuterol sulfate 2 puff INHALATION Q6H PRN #6.7 g 02/15/21 [Rx Last Taken Unknown] amoxicillin-pot clavulanate [Augmentin] 1 tab PO BID #14 tab 02/15/21 [Rx Last Taken Unknown] Allergy/AdvReac Type Severity Reaction Status Date / Time codeine Allergy Upset Verified 02/16/21 06:15 Stomach Family History (Updated 02/13/21 @ 16:[address] Michael Orantes MD) Other CVA (cerebral vascular accident) Surgical History History of cardiac cath History of heart artery stent Previous back surgery Social History (Updated 02/16/21 @ 18:[address] Michael Orantes MD) Smoking Status: Former smoker substance use type: does not use ROS Constitutional Constitutional: Reports weakness; Denies chills, fatigue, fever(s) or malaise Eyes Eyes: Denies blurry vision ENT HEENT: Denies headache(s) or nasal discharge Cardiovascular Cardiovascular: Denies chest pain, dyspnea on exertion or syncope Respiratory/Chest Respiratory/Chest: Reports cough and shortness of breath at rest; Denies shortness of breath with exertion Gastrointestinal Gastrointestinal: Denies constipation, diarrhea, nausea or vomiting Genitourinary Genitourinary: Denies dysuria Neurologic Neurologic: Denies focal weakness, numbness or tremor(s) Psychiatric Psychiatric: Denies anxiety or depression Vital Signs Vital Signs Vital Signs: 02/16/21 06:13 02/16/21 06:15 02/16/21 06:48 Temperature 97.8 F 97.8 F Temperature Source Temporal Oral Pulse Rate 65 69 Respiratory Rate 24 H 24 H Respiratory Effort Short of Breath Respiratory Depth Normal Respiratory Pattern Normal Blood Pressure 128/98 H 128/98 H Blood Pressure Mean 108 108 Pulse Ox 94 94 Oxygen Delivery Method Room Air Room Air 02/16/21 07:19 02/16/21 08:15 02/16/21 09:00 Temperature 97.9 F 97.9 F 97.4 F L Temperature Source Oral Oral Oral Pulse Rate 69 70 76 Respiratory Rate 26 H 25 H 25 H Respiratory Effort Respiratory Depth Respiratory Pattern Blood Pressure 117/82 H 136/81 H 105/83 H Blood Pressure Mean 93 99 90 Pulse Ox 95 93 93 Oxygen Delivery Method Room Air Room Air Room Air 02/16/21 10:33 02/16/21 11:00 02/16/21 12:00 Temperature 98.3 F 98.3 F Temperature Source Oral Oral Pulse Rate 72 70 73 Respiratory Rate 22 H 23 H 24 H Respiratory Effort Respiratory Depth Respiratory Pattern Blood Pressure 97/82 H 145/112 H 126/78 H Blood Pressure Mean 87 123 94 Pulse Ox 95 93 93 Oxygen Delivery Method Room Air Room Air Room Air 02/16/21 13:12 02/16/21 15:08 02/16/21 16:11 Temperature 98.6 F 98.2 F 98.3 F Temperature Source Oral Oral Oral Pulse Rate 72 82 88 Respiratory Rate 26 H 27 H 29 H Respiratory Effort Respiratory Depth Respiratory Pattern Blood Pressure 123/75 H 115/96 H 139/80 H Blood Pressure Mean 91 102 99 Pulse Ox 95 95 94 Oxygen Delivery Method Room Air Room Air Room Air Weight Weight: 194 lb 3.636 oz Body Mass Index (BMI) 31.3 Physical Exam Const alert, oriented x3 and no apparent distress General Appearance: cooperative HEENT normocephalic Mouth: dry mucous membranes Eyes PERRL, EOMs intact bilaterally and conjunctivae normal Neck supple and no JVD Resp normal respiratory effort, no retractions, no use of accessory muscles and clear to auscultation bilaterally Auscultation: crackles right base and wheezes scattered wheezes; Negative for rales or rhonchi Cardio regular rate, regular rhythm, S1 normal heart sound, S2 normal heart sound and no murmurs GI soft to palpation, non-tender and non-distended; Negative for hepatosplenomegaly Extremity no clubbing, cyanosis or edema Skin no rashes or lesions noted Neuro no focal motor deficits and no sensory deficits noted Psych affect normal Appearance: appropriate Results Lab / Micro Data Result Diagrams: 02/16/21 07:15 02/16/21 07:15 Labs: Laboratory Results - last 24 hr 02/16/21 07:15: WBC 5.8, RBC 4.52 L, Hgb 13.5, Hct 42.1, MCV 93.1, MCH 29.9, MCHC 32.1, RDW Std Deviation 49.5 H, RDW Coeff of Triston 14.5, Plt Count 113 L, MPV 10.8, Immature Gran % (Auto) 0.300, Neut % (Auto) 60.1, Lymph % (Auto) 30.6, [place] % (Auto) 8.6, Eos % (Auto) 0.2, Baso % (Auto) 0.2, Absolute Neuts (auto) 3.5, Absolute Lymphs (auto) 1.78, Nucleated RBC % 0 02/16/21 07:15: Sodium 142, Potassium 4.0, Chloride 110 H, Carbon Dioxide 24.0, Anion Gap 8, BUN 30 H, Creatinine 1.54 H, Estim Creat Clear Calc 35.10, Est GFR (MDRD) Af Amer 56 L, Est GFR (MDRD) Non-Af 46 L, BUN/Creatinine Ratio 19.5, Glucose 112 H, Calcium 8.4 L, Total Bilirubin 0.40, AST 33, ALT 25, Alkaline Phosphatase 54, Total Protein 6.2 L, Albumin 2.7 L, Globulin 3.5, Albumin/Globulin Ratio 0.8 L Micro: Microbiology 02/16/21 15:34 Nasal Secretion SARS-CoV-2 Antigen (Rapid) - Final SARS-CoV-2 (COVID 19) Assessment & Plan Assessment/Plan (1) COVID-19: (2) Weakness: (3) Aspiration pneumonia: PLAN: 1. Weakness and debility secondary to COVID-19/aspiration pneumonia -Symptoms started a 7 days ago however, in the ER he did not require any oxygen however when he presented up here they had to place some oxygen on him is unsure whether or not this is secondary to just poor perfusion and the pulse ox is not reading appropriately however given his wheezes and his history of smoking, will place him on Decadron for both the Covid and possible COPD and also place him on duo nebs -We will hold off remdesivir given his creatinine of 1.54 if it does improve tomorrow and he has remained on oxygen may be a consideration -He has been vaccinated -Passed bedside swallow on his previous admission as well -PT/OT evaluation demonstrates need for SNF unfortunately he went home and his was unable to take care of him. His was wanting him to come home initially -MRI was negative for stroke on his previous admission -Continue with Augmentin twice daily -We will attempt again to an ECF when able secondary to his positive Covid test 2. CAD status post stent/HTN/HLD -He does have a history of previous stent, will continue with his Plavix -Blood pressures are stable can continue with his home blood pressure medications -Continue with statin DVT: Heparin Charges/Coding Visit Charges OBSV E&M: 05051 Initial observation care L3
--- NOTE | 2021-02-16 17:05 | PCS.PANDOC ---
PANDEMIC DOCUMENTATION INITIATED: Date: 12/31/2020 Time: 190
--- NOTE | 2021-02-16 17:18 | CM.ED ---
SW Note SW called patient's and updated her of patient's assigned room. Patient's , Naida, was appreciative. Plan: To be determined Ivana HUNTER
[2021-02-16] MEDS: 0.9% Normal Saline 1,000 ML 75 ML IV (18:25)
[2021-02-16] MEDS: dexAMETHasone 10 MG/ML Vial 6 MG IV (18:28)
[2021-02-16] MEDS: Ipratropium/Albuterol Sulfate 3 ML AMPUL.NEB INHALATION (18:41)
[2021-02-16] MEDS: Heparin Injection (Vial) 5,000 UNIT/ML VIAL 5000 UNIT SC (21:18)
[2021-02-16] MEDS: Amox/Clavulanate 875 MG Tablet PO (21:18)
[2021-02-16] MEDS: Pravastatin 40 MG Tablet PO (21:18)
--- NOTE | 2021-02-16 22:05 | CT_ITS ---
STUDY: CTA CHEST REASON FOR EXAM: Male, 80 years old. Elevated D Dimer RADIATION DOSAGE (If Supplied By Facility): CTDIvol = ( 11.37 ) mGy, DLP = ( 421.71 ) mGycm TECHNIQUE: The examination was performed with the intravenous administration of IV 100mL Isovue-370. Post-processing of the angiographic images was performed, with multiplanar reformation and 3D reconstruction. Individualized dose optimization techniques were used for this CT. COMPARISON: None. FINDINGS: Normal enhancement of the main pulmonary artery and right and left pulmonary arteries. Normal enhancement of the bilateral peripheral pulmonary arteries. There is no demonstrated pulmonary embolism. Normal thoracic aorta and visualized great vessels. There is no demonstrated aortic dissection. Normal heart and pericardium. Normal mediastinum. Normal hilar regions. There is peribronchial thickening. The lungs are well expanded. Scattered areas of groundglass density in both lungs. Mild bilateral dependent atelectasis. Normal pleura. Normal chest wall structures. Left infraspinatus intramuscular lipoma. There are degenerative changes of thoracic spine. 3.8 cm lipid rich left adrenal adenoma. 2.9 x 1.7 cm cyst at the hepatic dome. CT/CTA Chest W/WO Contrast IMPRESSION: Multifocal pneumonia and bilateral dependent atelectasis. Normal CTA chest examination, without a demonstrated pulmonary embolism or arterial dissection. Electronically Signed: Tonny Hunter MD at 0:07 EDT Tel , Service support ,
[2021-02-16] MEDS: 0.9% Saline Lock 10 ML Syringe IV (22:16)
[2021-02-17] VITALS (12 sets, daily range): BP systolic 107–146; BP diastolic 59–100; PULSE 71–89; RESP 16–24; TEMP 36.3–36.5; O2SAT 94–96
[2021-02-17] MEDS: 0.9% Normal Saline 1,000 ML 75 ML IV (03:58)
[2021-02-17] MEDS: Heparin Injection (Vial) 5,000 UNIT/ML VIAL 5000 UNIT SC ×3 (06:28→21:09)
[2021-02-17 07:32] LABS: Absolute Lymphocyte Count 1.23 X10^3/uL (0.83-4.51); Absolute Neutrophil Count 3.8 X10^3/uL (2.0-7.7); Hematocrit 46.1 % (40-54); Lymphocyte # 1.23 X10^3/ul (0.83-4.51); Mean Corp Hgb Conc 32.5 g/dL (32-36); Mean Corpuscular Hgb 30.1 pg (27.0-32.0); Mean Corpuscular Volume 92.4 fL (80-94); Mean Platelet Vol. 11.6 fl (6.2-12.0); Monocyte# 0.29 X10^3/uL; Monocyte% 5.4 % (0-10); NRBC Flagged by Analyzer 0 % (0-5); Neutrophil # 3.81 X10^3/uL (2.7-7.7); Neutrophil % 71.2 % (47-70); Platelet Count 117 K/mm3 (150-450); RBC Distribution Width CV 14.3 % (11.6-14.6); RBC Distribution Width SD 48.5 fl (35.1-43.9); Red Blood Count 4.99 M/mm3 (4.6-6.2); White Blood Count 5.4 K/mm3 (4.4-11.0)
[2021-02-17] MEDS: Ipratropium/Albuterol Sulfate 3 ML AMPUL.NEB INHALATION ×4 (07:44→18:47)
[2021-02-17 08:05] LABS: Anion Gap 10 (5-15); BUN 33 mg/dL (7-18); BUN/Creat Ratio 28.9 RATIO (10-20); Calcium,Total 8.2 mg/dL (8.5-10.1); Chloride 114 mmol/L (98-107); Creatinine, Serum 1.14 mg/dL (0.70-1.30); EST Glomerular Filtration Rate 66 mL/min (>60); Est Glom Filt Rate - Afr Amer 80 mL/min (>60); Estimated Creatinine Clearance 47.41 ml/min; Glucose 166 mg/dL (74-106); Potassium 4.4 mmol/L (3.5-5.1); Sodium Level 142 mmol/L (136-145)
[2021-02-17] MEDS: Isosorbide Mononitrate 30 MG Tablet PO (09:57)
[2021-02-17] MEDS: Lisinopril 5 MG Tablet PO (09:57)
[2021-02-17] MEDS: Metoprolol(XL)Succ 25 MG Tablet 12.5 MG PO (09:57)
[2021-02-17] MEDS: Clopidogrel Bisulfate 75 MG Tablet PO (09:57)
[2021-02-17] MEDS: Amox/Clavulanate 875 MG Tablet PO ×2 (09:58→21:08)
[2021-02-17] MEDS: dexAMETHasone 4 MG Tablet 6 MG PO (09:58)
--- NOTE | 2021-02-17 10:38 | PN.HOSP_ITS ---
Subjective Subjective Doing well, no issues overnight, maintaining his oxygen sats on 3 L. His kidney function has improved therefore can initiate remdesivir therapy as well. Objective Data Objective Data Vital Signs: Vital Signs Temp Pulse Resp BP Pulse Ox 97.5 F L 71 20 H 114/59 L 95 02/17/21 09:30 02/17/21 10:22 02/17/21 10:22 02/17/21 09:30 02/17/21 09:30 Oxygen Flow Rate (L/min) 2 Oxygen Delivery Method Nasal Cannula Weight: 185 lb 6.54 oz Body Mass Index (BMI) 29.9 Intake & Output: Intake and Output for Last 24 Hours 02/16/21 02/17/21 02/18/21 03:59 03:59 03:59 Intake Total 716.25 / 716.25 Balance 716.25 / 716.25 Lab / Micro Data Result Diagrams: 02/17/21 06:00 02/17/21 06:00 Labs: Laboratory Results - last 24 hr 02/16/21 19:07: D-Dimer Quant (PE/DVT) 1.30 H* 02/17/21 06:00: WBC 5.4, RBC 4.99, Hgb 15.0, Hct 46.1, MCV 92.4, MCH 30.1, MCHC 32.5, RDW Std Deviation 48.5 H, RDW Coeff of Triston 14.3, Plt Count 117 L, MPV 11.6, Immature Gran % (Auto) 0.400, Neut % (Auto) 71.2 H, Lymph % (Auto) 23.0, [place] % (Auto) 5.4, Eos % (Auto) 0.0, Baso % (Auto) 0.0, Absolute Neuts (auto) 3.8, Absolute Lymphs (auto) 1.23, Nucleated RBC % 0 02/17/21 06:00: Sodium 142, Potassium 4.4, Chloride 114 H, Carbon Dioxide 18.0 L , Anion Gap 10, BUN 33 H, Creatinine 1.14, Estim Creat Clear Calc 47.41, Est GFR (MDRD) Af Amer 80, Est GFR (MDRD) Non-Af 66, BUN/Creatinine Ratio 28.9 H, G lucose 166 H, Calcium 8.2 L Micro: Microbiology 02/16/21 15:34 Nasal Secretion SARS-CoV-2 Antigen (Rapid) - Final SARS-CoV-2 (COVID 19) Radiography Diagnostic Testing: Radiology Impression Chest CTA 02/16/21 22:05 IMPRESSION: Multifocal pneumonia and bilateral dependent atelectasis. Normal CTA chest examination, without a demonstrated pulmonary embolism or arterial dissection. Electronically Signed: Tonny Hunter MD at 0:07 EDT Tel , Service support , Physical Exam Const alert, oriented x3 and no apparent distress General Appearance: cooperative Orientation / Consciousness: confused HEENT normocephalic Eyes PERRL, EOMs intact bilaterally and conjunctivae normal Neck supple and no JVD Resp normal respiratory effort, no retractions, no use of accessory muscles and clear to auscultation bilaterally Auscultation: crackles right base and wheezes scattered wheezes; Negative for rales or rhonchi Cardio regular rate, regular rhythm, S1 normal heart sound, S2 normal heart sound and no murmurs GI soft to palpation, non-tender and non-distended; Negative for hepatosplenomegaly Extremity no clubbing, cyanosis or edema Skin no rashes or lesions noted Neuro no focal motor deficits and no sensory deficits noted Psych affect normal Appearance: appropriate Assessment & Plan Assessment/Plan (1) COVID-19: (2) Weakness: (3) Aspiration pneumonia: PLAN: 1. Weakness and debility secondary to COVID-19/aspiration pneumonia -Symptoms started a 7 days ago however, in the ER he did not require any oxygen however when he presented up here they had to place some oxygen on him is unsure whether or not this is secondary to just poor perfusion and the pulse ox is not reading appropriately however given his wheezes and his history of smoking, will place him on Decadron for both the Covid and possible COPD and also place him on duo nebs -Creatinine is improved to 1.14, will start remdesivir and stop fluids -He has been vaccinated -Passed bedside swallow on his previous admission as well -PT/OT evaluation demonstrates need for SNF unfortunately he went home and his was unable to take care of him. His was wanting him to come home initially -MRI was negative for stroke on his previous admission -Continue with Augmentin twice daily -We will attempt again to an ECF when able secondary to his positive Covid test 2. CAD status post stent/HTN/HLD -He does have a history of previous stent, will continue with his Plavix -Blood pressures are stable can continue with his home blood pressure medications -Continue with statin DVT: Heparin Charges/Coding Visit Charges Inpatient E&M: 90186 Subs Hosp L2
[2021-02-17] MEDS: Pravastatin 40 MG Tablet PO (21:09)
[2021-02-18] VITALS (13 sets, daily range): BP systolic 80–123; BP diastolic 53–76; PULSE 66–91; RESP 20–24; TEMP 36.3–36.8; O2SAT 91–95
[2021-02-18] MEDS: Heparin Injection (Vial) 5,000 UNIT/ML VIAL 5000 UNIT SC ×2 (05:17→15:32)
[2021-02-18] MEDS: Ipratropium/Albuterol Sulfate 3 ML AMPUL.NEB INHALATION ×2 (07:04→11:55)
[2021-02-18 07:16] LABS: Absolute Neutrophil Count 6.7 X10^3/uL (2.0-7.7); Hematocrit 41.5 % (40-54); Hemoglobin 13.5 g/dL (13.0-16.5); Lymphocyte % 11.1 % (19-41); Mean Corp Hgb Conc 32.5 g/dL (32-36); Mean Corpuscular Hgb 29.9 pg (27.0-32.0); Monocyte# 0.49 X10^3/uL; NRBC Flagged by Analyzer 0 % (0-5); Neutrophil # 6.71 X10^3/uL (2.7-7.7); Neutrophil % 82.5 % (47-70); Platelet Count 125 K/mm3 (150-450); RBC Distribution Width CV 14.2 % (11.6-14.6); Red Blood Count 4.51 M/mm3 (4.6-6.2); White Blood Count 8.1 K/mm3 (4.4-11.0)
[2021-02-18 07:47] LABS: ALB/GLOB Ratio 0.7 RATIO (0.9-2.4); AST(SGOT) 34 U/L (15-37); Alanine Aminotransfer ALT/SGPT 24 U/L (16-61); Albumin, Serum 2.4 g/dL (3.2-5.0); Alkaline Phosphatase 49 U/L (45-117); Anion Gap 8 (5-15); BUN 47 mg/dL (7-18); BUN/Creat Ratio 35.6 RATIO (10-20); Calcium,Total 8.4 mg/dL (8.5-10.1); Chloride 118 mmol/L (98-107); Creatinine, Serum 1.32 mg/dL (0.70-1.30); EST Glomerular Filtration Rate 56 mL/min (>60); Est Glom Filt Rate - Afr Amer 67 mL/min (>60); Estimated Creatinine Clearance 40.95 ml/min; Globulin 3.5 g/dL (2.2-4.2); Glucose 172 mg/dL (74-106); Potassium 4.1 mmol/L (3.5-5.1); Protein, Total 5.9 g/dL (6.4-8.2); Sodium Level 144 mmol/L (136-145)
--- NOTE | 2021-02-18 09:13 | PN.HOSP_ITS ---
Subjective Subjective Patient is a 80-year-old gentleman vaccinated against COVID-19 presented with shortness of breath Objective Data Objective Data Vital Signs: Vital Signs Temp Pulse Resp BP Pulse Ox 97.8 F 91 20 H 123/64 H 91 02/18/21 09:08 02/18/21 09:08 02/18/21 09:08 02/18/21 09:08 02/18/21 09:08 Oxygen Flow Rate (L/min) 1 Oxygen Delivery Method Room Air Weight: 84.1 kg Body Mass Index (BMI) 29.9 Intake & Output: Intake and Output for Last 24 Hours 02/16/21 02/17/21 02/18/21 23:59 23:59 23:59 Intake Total 2206.25 / 2206.25 Balance 2206.25 / 2206.25 Lab / Micro Data Result Diagrams: 02/18/21 06:14 02/18/21 06:14 Labs: Laboratory Results - last 24 hr 02/18/21 06:14: WBC 8.1, RBC 4.51 L, Hgb 13.5, Hct 41.5, MCV 92.0, MCH 29.9, MCHC 32.5, RDW Std Deviation 48.0 H, RDW Coeff of Triston 14.2, Plt Count 125 L, MPV 12.0, Immature Gran % (Auto) 0.400, Neut % (Auto) 82.5 H, Lymph % (Auto) 11.1 L, [place] % (Auto) 6.0, Eos % (Auto) 0.0, Baso % (Auto) 0.0, Absolute Neuts (auto) 6.7, Absolute Lymphs (auto) 0.90, Nucleated RBC % 0 02/18/21 06:14: Sodium 144, Potassium 4.1, Chloride 118 H, Carbon Dioxide 18.0 L , Anion Gap 8, BUN 47 H, Creatinine 1.32 H, Estim Creat Clear Calc 40.95, Est GFR (MDRD) Af Amer 67, Est GFR (MDRD) Non-Af 56 L, BUN/Creatinine Ratio 35.6 H, Glucose 172 H, Calcium 8.4 L, Total Bilirubin 0.40, AST 34, ALT 24, Alkaline Phosphatase 49, Total Protein 5.9 L, Albumin 2.4 L, Globulin 3.5, Albumin/Globu ernestina Ratio 0.7 L Micro: Microbiology 02/16/21 15:34 Nasal Secretion SARS-CoV-2 Antigen (Rapid) - Final SARS-CoV-2 (COVID 19) Physical Exam Narrative GENERAL: cooperative HEENT: Atraumatic; EYES; Anicteric, Normal Conjunctiva NECK; supple, normal thyroid, RESPIRATORY: Diminished to auscultation CARDIOVASCULAR: Regular S1 S2, GI: soft, normoactive bowel sounds, : No Renal angle tenderness; EXTREMITIES: No edema, no clubbing, MUSCULOSKELETAL: no muscle waisting NEURO: Awake; no lateralizing signs. SKIN: No Rash PSYCH; Flat affect Assessment & Plan Assessment/Plan (1) COVID-19: (2) Weakness: (3) Aspiration pneumonia: PLAN: Patient is a 80-year-old gentleman vaccinated against COVID-19 presented with shortness of breath 1. Acute Covid pneumonia ?Admitted to a regular nursing floor managed with remdesivir. Patient did not require any oxygen 2. Physical deconditioning secondary to above - Requested for PT OT eval and hospice social worker to assist with discharge planning 3. Coronary artery disease ?With previous stent placement 4. Hypertension - Blood pressure controlled, home medications continued with dose adjustment as needed 5. Dyslipidemia -Patient is on statin therapy, continued at home dose 6. DVT prophylaxis ?SC heparin Charges/Coding Visit Charges Inpatient E&M: 64348 Subs Hosp L2
[2021-02-18] MEDS: dexAMETHasone 4 MG Tablet 6 MG PO (09:14)
[2021-02-18] MEDS: Clopidogrel Bisulfate 75 MG Tablet PO (09:14)
[2021-02-18] MEDS: Metoprolol(XL)Succ 25 MG Tablet 12.5 MG PO (09:14)
[2021-02-18] MEDS: Amox/Clavulanate 875 MG Tablet PO (09:14)
[2021-02-18] MEDS: Isosorbide Mononitrate 30 MG Tablet PO (09:14)
[2021-02-18] MEDS: 0.9% Saline Lock 10 ML Syringe IV (09:15)
[2021-02-18] MEDS: Lisinopril 5 MG Tablet PO (09:15)
--- NOTE | 2021-02-18 10:37 | CASEMGMT ---
Social Work Note ASH reviewed chart. Pt's is requesting SNF for pt. Pt tested positive for COVID on 02/13, still has five days from 10 days post positive test. There are four SNF that are currently accepting COVID+ (without being 10-14 days post positive tests). Those SNFs are [facility] in [place], [place], [facility] in [place], [place], [facility] in [facility], and [facility] in [place], [place]. ASH placed a call to all SNFs that are accepting COVID positive pt's. At this time all facilities, except one, either has waitlist or no beds available. The one facility that has COVID beds available at this time is [facility] [place] [facility] ASH spoke with Karmen in admissions at [place]. They do have beds available. Karmen states that they are allowing family to visits pt's on their COVID unit. Karmen states fax number is [phone]. ASH will follow up with pt and pt's to discuss discharge plans. Aisha Tinoco PHOTOGRAPHIC EQUIPMENT TECHNICIAN, BIOANALYST
--- NOTE | 2021-02-18 11:39 | CASEMGMT ---
Social Work Note SW in to speak with pt. ASH introduced self and role at [facility]. Pt remembers speaking to this worker last week. Pt is alert and orientated x3. SW spoke with pt about discharge plans as pt is assist of two with PT/OT and pt's Naida is stating she cannot take care of pt at home. Pt states he and his did talk about pt going to SNF. SW informed pt that there are four nursing homes that are currently taking COVID positive pt's and of those four, only one of them currently as beds available and pt is medically ready for discharge today. Patient was provided a list of SNF providers including quality and resource use data and consistent with the patient?s preferred geographic region, medical needs, and insurance network. SW informed pt that the only SNF that is taking COVID Positive pt's and has beds available at this time is [facility] in [place]. Pt states well I don't think my is going to be happy about that. SW informed pt that that is the only option available at this time and if pt needs SNF, which again pt is assist of two with PT/OT, then pt needs to consider SNF. SW informed pt that they are allowing family to visit. Pt agreeable to referral being sent to [place]. SW informed pt that this worker will call his to update her. Pt states understanding. ASH placed a call to pt's Naida and updated her on only SNF that is accepting COVID pts and that has beds available and that that SNF is [facility] in [place]. SW provided address to SNF and that they are allowing visitation at this time. Naida agreeable to SNF. Naida asked how pt would transport. ASH informed Naida that pt could likely transport via wheelchair which will be private pay. Naida states understanding. ASH faxed referral to [facility] ([phone]). ASH placed a call to Karmen in admissions ([phone]) and provided referral. ASH updated Karmen that pt is medically ready for discharge today. Karmen states she will review referral and then let this worker know. Plan: [facility] skilled pending acceptance Aisha Tinoco PAINT PREPPER, CLASSROOM AIDE
--- NOTE | 2021-02-18 13:24 | PCM.TXEXTCAR ---
Diet 02/16/21 17:04 Diet: Cardiac - Heart Healthy Food consistency:: Mechanical (Minced/Moist) Liquid Consistency:: Regular/Thin Type of Dietary Supplement:: Ensure Enlive Is pt able to select menu?: No Diet Comments: sweetened ice tea x2 with all meals please Wound(s) right knee: Wound Type: Abrasion Therapies Physical Therapy: Eval and Treat Occupational Therapy: Eval and Treat Problem/Diagnosis (1) COVID-19: Status: Acute (2) Weakness: Status: Acute (3) Aspiration pneumonia: Status: Acute Allergies/Procedures Done in Hospital Allergies codeine Allergy (Verified 02/16/21 06:15) Upset Stomach Type of Care/Length of Stay Estimated LOS: Convalescent Care Less Than 30 days Type of Care Needed: Skilled Rehab Potential: Good Prognosis: Good Additional Orders/Day of Discharge Day of Discharge: 02/18/21 Dietary and Speech Recommendations Dietitian Recommendations/Changes: Continue cardiac diet as tolerated. Will add ONS as needed if PO established inadequate at meals. Discharge Plan Admission Admit Date/Time: 02/16/21 16:34 Attending Provider: Audie Talley Primary Care Provider: Juliocesar Laughlin Discharge Orders/Prescriptions Prescriptions: New acetaminophen [Tylenol] 325 mg Tablet 650 mg PO Q6H PRN PRN (Reason: Pain Score 1-10/Temp > 100.7 F) Qty: 0 RF: 0 melatonin 3 mg Tablet 3 mg PO QHS PRN PRN (Reason: Insomnia) Qty: 0 RF: 0 dexamethasone 4 mg Tablet 6 mg PO DAILY Qty: 7 RF: 0 menthol-zinc oxide [Calmoseptine] 0.44-20.6 % Ointment 1 applic topical TID PRN (Reason: DIAPER RASH) Qty: 0 RF: 0 Continued isosorbide mononitrate 30 mg Tablet Extended Release 24 Hr 30 mg PO DAILY RF: 0 clopidogrel 75 mg Tablet 75 mg PO DAILY RF: 0 lisinopril 5 mg Tablet 5 mg PO DAILY RF: 0 metoprolol succinate 25 mg Tablet Extended Release 24 Hr 12.5 mg PO DAILY RF: 0 pravastatin 40 mg PO/SL DAILY RF: 0 albuterol sulfate 90 mcg/actuation HFA aerosol inhaler 2 puff inhalation Q6H PRN (Reason: shortness of breath or wheezing) Qty: 6.7 RF: 0 Discontinued amoxicillin-pot clavulanate [Augmentin] 875-125 mg tablet 1 tab PO BID Qty: 14 RF: 0 Referrals / Follow Up: Juliocesar Laughlin MD [Primary Care Provider] -
--- NOTE | 2021-02-18 13:27 | DS.PCM_ITS ---
Providers Date of Admission: 02/16/21 Primary Care Physician: Dr. Juliocesar Laughlin MD Reason For Visit: COVID AND ASPIRATION Diagnosis Discharge Diagnosis (1) COVID-19: Status: Acute Code(s): U07.1 - COVID-19 (2) Weakness: Status: Acute Code(s): R53.1 - Weakness (3) Aspiration pneumonia: Status: Acute Code(s): J69.0 - Pneumonitis due to inhalation of food and vomit Medications at Discharge Home Medications clopidogrel 75 mg PO DAILY 02/13/21 isosorbide mononitrate 30 mg PO DAILY 02/13/21 lisinopril 5 mg PO DAILY 02/13/21 metoprolol succinate 12.5 mg PO DAILY 02/13/21 pravastatin 40 mg PO/SL DAILY 02/13/21 albuterol sulfate 2 puff INHALATION Q6H PRN #6.7 g 02/15/21 acetaminophen [Tylenol] 650 mg PO Q6H PRN PRN #0 tab 02/18/21 dexamethasone 6 mg PO DAILY #7 tab 02/18/21 melatonin 3 mg PO QHS PRN PRN #0 tab 02/18/21 menthol-zinc oxide [Calmoseptine] 1 applic TOPICAL TID PRN #0 g 02/18/21 Hospital Course Summary of Care Provided Minutes Spent on Discharge: 45 Hospital Course: Patient is a 80-year-old gentleman vaccinated against COVID-19 presented with shortness of breath 1. Acute Covid pneumonia ?Admitted to a regular nursing floor managed with remdesivir. Patient did not require any oxygen 2. Physical deconditioning secondary to above - Requested for PT OT eval and social work program coordinator to assist with discharge planning 3. Coronary artery disease ?With previous stent placement 4. Hypertension - Blood pressure controlled, home medications continued with dose adjustment as needed 5. Dyslipidemia -Patient is on statin therapy, continued at home dose 6. DVT prophylaxis ?SC heparin Physical Exam Narrative GENERAL: cooperative HEENT: Atraumatic; EYES; Anicteric, Normal Conjunctiva NECK; supple, normal thyroid, RESPIRATORY: Diminished to auscultation CARDIOVASCULAR: Regular S1 S2, GI: soft, normoactive bowel sounds, : No Renal angle tenderness; EXTREMITIES: No edema, no clubbing, MUSCULOSKELETAL: no muscle waisting NEURO: Awake; no lateralizing signs. SKIN: No Rash PSYCH; Flat affect Weight / BMI Weight Weight: 84.1 kg Body Mass Index (BMI) 29.9 ABG / Lab / Microbiology Data Result Diagrams: 02/18/21 06:14 02/18/21 06:14 Laboratory: Laboratory Results - last 24 hr 02/18/21 06:14: WBC 8.1, RBC 4.51 L, Hgb 13.5, Hct 41.5, MCV 92.0, MCH 29.9, MCHC 32.5, RDW Std Deviation 48.0 H, RDW Coeff of [place] 14.2, Plt Count 125 L, MPV 12.0, Immature Gran % (Auto) 0.400, Neut % (Auto) 82.5 H, Lymph % (Auto) 11.1 L , [place] % (Auto) 6.0, Eos % (Auto) 0.0, Baso % (Auto) 0.0, Absolute Neuts (auto) 6.7, Absolute Lymphs (auto) 0.90, Nucleated RBC % 0 02/18/21 06:14: Sodium 144, Potassium 4.1, Chloride 118 H, Carbon Dioxide 18.0 L , Anion Gap 8, BUN 47 H, Creatinine 1.32 H, Estim Creat Clear Calc 40.95, Est GFR (MDRD) Af Amer 67, Est GFR (MDRD) Non-Af 56 L, BUN/Creatinine Ratio 35.6 H, Glucose 172 H, Calcium 8.4 L, Total Bilirubin 0.40, AST 34, ALT 24, Alkaline Phosphatase 49, Total Protein 5.9 L, Albumin 2.4 L, Globulin 3.5, Al bumin/Globulin Ratio 0.7 L Microbiology: Microbiology 02/16/21 15:34 Nasal Secretion SARS-CoV-2 Antigen (Rapid) - Final SARS-CoV-2 (COVID 19) Meaningful Use Info Meaningful Use Diagnoses (Choose all that apply): None applicable Discharge Plan Admission Admit Date/Time: 02/16/21 16:34 Attending Provider: Audie Talley Primary Care Provider: Juliocesar Laughlin Discharge Orders/Prescriptions Prescriptions: New acetaminophen [Tylenol] 325 mg Tablet 650 mg PO Q6H PRN PRN (Reason: Pain Score 1-10/Temp > 100.7 F) Qty: 0 RF: 0 melatonin 3 mg Tablet 3 mg PO QHS PRN PRN (Reason: Insomnia) Qty: 0 RF: 0 dexamethasone 4 mg Tablet 6 mg PO DAILY Qty: 7 RF: 0 menthol-zinc oxide [Calmoseptine] 0.44-20.6 % Ointment 1 applic topical TID PRN (Reason: DIAPER RASH) Qty: 0 RF: 0 Continued isosorbide mononitrate 30 mg Tablet Extended Release 24 Hr 30 mg PO DAILY RF: 0 clopidogrel 75 mg Tablet 75 mg PO DAILY RF: 0 lisinopril 5 mg Tablet 5 mg PO DAILY RF: 0 metoprolol succinate 25 mg Tablet Extended Release 24 Hr 12.5 mg PO DAILY RF: 0 pravastatin 40 mg PO/SL DAILY RF: 0 albuterol sulfate 90 mcg/actuation HFA aerosol inhaler 2 puff inhalation Q6H PRN (Reason: shortness of breath or wheezing) Qty: 6.7 RF: 0 Discontinued amoxicillin-pot clavulanate [Augmentin] 875-125 mg tablet 1 tab PO BID Qty: 14 RF: 0 Referrals / Follow Up: Juliocesar Laughlin MD [Primary Care Provider] - Disposition Disposition (needs filled in before D/C Order can be placed): Long-Term Facility Charges/Coding Visit Charges Inpatient E&M: [id number] Disch Hosp
--- NOTE | 2021-02-18 14:29 | PHA.DC.MR ---
Pharmacy Service has performed discharge medication reconciliation for this patient. The patient's discharge medication list was reviewed for discrepancies and discrepancies were resolved. Home Medications clopidogrel 75 mg PO DAILY 02/13/21 isosorbide mononitrate 30 mg PO DAILY 02/13/21 lisinopril 5 mg PO DAILY 02/13/21 metoprolol succinate 12.5 mg PO DAILY 02/13/21 pravastatin 40 mg PO/SL DAILY 02/13/21 albuterol sulfate 2 puff INHALATION Q6H PRN #6.7 g 02/15/21 acetaminophen [Tylenol] 650 mg PO Q6H PRN PRN #0 tab 02/18/21 dexamethasone 6 mg PO DAILY #7 tab 02/18/21 melatonin 3 mg PO QHS PRN PRN #0 tab 02/18/21 menthol-zinc oxide [Calmoseptine] 1 applic TOPICAL TID PRN #0 g 02/18/21
--- NOTE | 2021-02-18 14:42 | CASEMGMT ---
Social Work Note ASH received call from Karmen in admissions at [facility] stating they are able to accept pt today, requests evening transportation time. ASH updated physician. ASH placed a call to pt's Naida and updated her on [facility] accepting pt. ASH did update Naida that [facility] is only a one star facility, updated her that that is the only SNF accepting COVID+ pt's that have beds available today. ASH spoke with Naida about how pt only needs five more days and then will be considered 10 days post positive COVID test and that there are more facilities that would be able to accept pt when he is 10 days post positive COVID test. ASH informed Naida of those SNF that will consider COVID+ pt's 10 days from positive COVID test. Naida states understanding, would like to be updated on visitation at the [facility]. ASH informed Naida that this worker will ask admissions to call her regarding visitation. Naida states understanding, agreeable to pt discharging to [facility]. ASH faxed completed discharge paperwork to [facility] including transfer to extended care facility, signed medication list, any scripts, COVID test/tool and convalescent 7000. Original in SNF folder and copy on pt's chart. ASH completed convalescent 7000 in [facility]. ASH spoke with RN, pt to transport via cot. ASH accessed trip assist and arranged transportation via cot for 5:30pm. Transportation form completed and placed on SNF folder and copy on pt's chart. ASH placed a call to pt's Naida and updated her on discharge and transportation time. ASH informed Naida that this worker did leave message for Karmen in admissions to call her regarding visitation. Naida states understanding. RN updated on transportation time. ASH updated pt on acceptance and discharge to [facility], pt states whatever my wants. ASH placed a call to Karmen in admissions at [facility] and left message updating her on transportation time and to call pt's Naida to discuss visitation policy. Plan: Discharge to [facility] skilled under convalescent stay with Physician's transporting pt via cot at 5:30pm Aisha Tinoco MSW, EMERGENCY MEDICAL TECHNICIAN BASIC
== END 2021-02-18 18:37 | disposition skilled nursing facility (03) | DRG 177 ==
LOC: ED 06:59 → MS3 16:34
PROVIDERS: Admitting Provider Family Medicine; Emergency Provider Emergency Medicine; PCP Family Medicine; Visit Provider Internal Medicine
DX: U07.1 COVID-19 (principal); J12.82 Pneumonia due to coronavirus disease 2019; J69.0 Pneumonitis due to inhalation of food and vomit; Z23 Encounter for immunization; I25.10 Atherosclerotic heart disease of native coronary artery without angina pectoris; I10 Essential (primary) hypertension; E78.5 Hyperlipidemia, unspecified; Z79.02 Long term (current) use of antithrombotics/antiplatelets; Z79.899 Other long term (current) drug therapy; Z87.891 Personal history of nicotine dependence; Z95.5 Presence of coronary angioplasty implant and graft
CPT/HCPCS: 36415; 71275; 80048; 80053; 85025; 85379; 87426; 94640; 94762; 97161; 97166; 97530; 99285; G0008; J7030; J7050; Q9967; 90686; A4216